=== PATIENT | female | born 1970 | race Caucasian/White ===

== ENCOUNTER 2024-04-05 08:15 | Day surgery (SDC) | payer OTHER ==
[2024-04-01 14:57] VITALS: BMI 27.1
[2024-04-05 08:39] VITALS: RESP 18; TEMP 97.1
[2024-04-05 10:19] VITALS: BP 112/80; PULSE 72
== END 2024-04-05 10:19 | disposition home or self-care (01) ==
LOC: FASU-ENDO 08:15
PROVIDERS: ATTEND Internal Medicine Gastroenterology
PROC: 0DJD8ZZ Inspection of Lower Intestinal Tract, Via Natural or Artificial Opening Endoscopic (ICD-10-PCS; principal; 2024-04-05 09:37)
DX: Z12.11 Encounter for screening for malignant neoplasm of colon (principal); K64.1 Second degree hemorrhoids